=== PATIENT | male | born 1960 | race African-American/Black ===

== ENCOUNTER 2024-02-13 11:20 | Emergency (ER) | payer OTHER ==
--- NOTE | 2024-02-13 11:46 | ER ---
Nurse's Notes [facility] Name: Gerson Gonzalez Age: 63 yrs Sex: Male : 1960 Arrival Date: 02/13/2024 Time: 11:20 Bed 8 Private MD: Diagnosis: Subcutaneous cyst Presentation: 02/12 11:38 Chief complaint: Patient states: "For the past 2-3 weeks, my left foot started hurting. mb9 It gets worse when walking. I didn't injure it.". Coronavirus screen: Vaccine status: Patient reports receiving the 2nd dose of the covid vaccine. Ebola Screen: No symptoms or risks identified at this time. Initial Sepsis Screen: Does the patient meet any 2 criteria? No. Patient's initial sepsis screen is negative. Does the patient have a suspected source of infection? No. Patient's initial sepsis screen is negative. Risk Assessment: Do you want to hurt yourself or someone else? Patient reports no desire to harm self or others. Onset of symptoms was February 13, 2024. 11:38 Method Of Arrival: Ambulatory 9 11:38 Acuity: ISMA 5 mb9 Triage Assessment: 11:39 General: Appears in no apparent distress. Behavior is calm, cooperative. Pain: mb9 Complains of pain in left foot Pain does not radiate. Pain currently is 2 out of 10 on a pain scale. Quality of pain is described as throbbing, Pain began gradually. EENT: No signs and/or symptoms were reported regarding the EENT system. Neuro: Starks Agitation-Sedation Scale (RASS): 0 - Alert and Calm Level of Consciousness is awake, alert, obeys commands, Oriented to person, place, time, situation, Appropriate for age. Cardiovascular: Patient's skin is warm and dry. Respiratory: Airway is patent Respiratory effort is even, unlabored, Respiratory pattern is regular, symmetrical. GI: No signs and/or symptoms were reported involving the gastrointestinal system. : No signs and/or symptoms were reported regarding the genitourinary system. Derm: Skin is pink, warm \\T\\ dry. Musculoskeletal: Range of motion: intact in all extremities. Historical: - Allergies: 11:40 No Known Allergies; mb9 - Home Meds: 11:40 None [Active]; mb9 - PMHx: 11:40 Hypertensive disorder; mb9 - PSHx: 11:40 None; mb9 - Immunization history:: Adult Immunizations up to date. - Infectious Disease History:: Denies. - Social history:: Smoking status: Patient denies any tobacco usage or history of. Screenin:40 [facility] ED Fall Risk Assessment (Adult) History of falling in the last 3 months, mb9 including since admission No falls in past 3 months (0 pts) Confusion or Disorientation No (0 pts) Intoxicated or Sedated No (0 pts) Impaired Gait No (0 pts) Mobility Assist Device Used No (0 pt) Altered Elimination No (0 pt) Score/Fall Risk Level 0 - 2 = Low Risk Oriented to surroundings, Maintained a safe environment, Educated pt \\T\\ family on fall prevention, incl call for assistance when getting out of bed, Assessed \\T\\ reinforced patient's understanding of fall precautions. Abuse screen: Denies threats or abuse. Nutritional screening: No deficits noted. Tuberculosis screening: No symptoms or risk factors identified. Assessment: 11:41 Reassessment: see triage assessment. mb9 Vital Signs: 11:38 Pulse 65; Resp 18; Temp 98.1; Pulse Ox 99% on R/A; Weight 75.75 kg; Height 5 ft. 6 in. mb9 ; Pain 2/10; 11:41 BP 151 / 105; mb9 11:38 Body Mass Index 26.95 (75.75 kg, 167.64 cm) mb9 11:38 Pain Scale: Adult mb9 ED Course: 11:22 Patient arrived in ED. mr 11:25 James Adames MD is Attending Physician. sp3 11:34 Charlene Caceres RN is Primary Nurse. mb9 11:34 Arm band placed on. mb9 11:39 Triage completed. mb9 11:40 Placed in gown. Bed in low position. Call light in reach. Side rails up X 1. Provided mb9 Education on: press call light if needing anything. Client placed on continuous cardiac and pulse oximetry monitoring. NIBP monitoring applied. Door closed. Noise minimized. Warm blanket given. 11:41 No provider procedures requiring assistance completed. mb9 11:43 Patient did not have IV access during this emergency room visit. mb9 Administered Medications: No medications were administered Medication: 11:40 VIS not applicable for this client. mb9 Outcome: 11:45 Discharge ordered by . sp3 11:45 Discharged to home ambulatory, mb9 11:45 Condition: stable 11:45 Discharge instructions given to patient, Instructed on discharge instructions, follow up and referral plans. Demonstrated understanding of instructions, follow-up care, 11:55 Patient left the ED. mb9 Signatures: Charlene Pedroza, Reg Reg James Adames MD MD sp3 Charlene Caceres RN RN mb9 Corrections: (The following items were deleted from the chart) 11:41 11:38 Acuity: ISMA 4 mb9 mb9
--- NOTE | 2024-02-13 11:46 | EDPHYS ---
Physician Documentation [facility] Name: Gerson Gonzalez Age: 63 yrs Sex: Male : 1960 Arrival Date: 02/13/2024 Time: 11:20 Bed 8 Private MD: ED Physician James Adames HPI: 02/12 11:43 This 63 yrs old Black Male presents to ER via Ambulatory with complaints of Foot sp3 problem. 11:43 63-year-old male with left foot pain and swelling for 1 month. Patient states he has sp3 had an x-ray which has been normal. He would like us to "drain it". He denies any other symptoms including direct trauma, significant pain, fever, redness, or any other signs or symptoms on ROS at this time. No history of gout reported.. Historical: - Allergies: 11:40 No Known Allergies; mb9 - Home Meds: 11:40 None [Active]; mb9 - PMHx: 11:40 Hypertensive disorder; mb9 - PSHx: 11:40 None; mb9 - Immunization history:: Adult Immunizations up to date. - Infectious Disease History:: Denies. - Social history:: Smoking status: Patient denies any tobacco usage or history of. ROS: 11:44 Constitutional: Negative for fever, chills, and weight loss, Eyes: Negative for injury, sp3 pain, redness, and discharge, ENT: Negative for injury, pain, and discharge, Neck: Negative for injury, pain, and swelling, Cardiovascular: Negative for chest pain, palpitations, and edema, Respiratory: Negative for shortness of breath, cough, wheezing, and pleuritic chest pain, Abdomen/GI: Negative for abdominal pain, nausea, vomiting, diarrhea, and constipation, Back: Negative for injury and pain, Skin: Negative for injury, rash, and discoloration, Neuro: Negative for headache, weakness, numbness, tingling, and seizure, Psych: Negative for depression, anxiety, suicide ideation, homicidal ideation, and hallucinations, Allergy/Immunology: Negative for hives, rash, and allergies, Endocrine: Negative for neck swelling, polydipsia, polyuria, polyphagia, and marked weight changes, 11:44 All other systems are negative, Exam: 11:44 Constitutional: This is a well developed, well nourished patient who is awake, alert, sp3 and in no acute distress. Head/Face: Normocephalic, atraumatic. Neck: Trachea midline, no thyromegaly or masses palpated, and no cervical lymphadenopathy. Supple, full range of motion without nuchal rigidity, or vertebral point tenderness. No Meningismus. Chest/axilla: Normal chest wall appearance and motion. Nontender with no deformity. No lesions are appreciated. Cardiovascular: Regular rate and rhythm with a normal S1 and S2. No gallops, murmurs, or rubs. Normal PMI, no JVD. No pulse deficits. Respiratory: Lungs have equal breath sounds bilaterally, clear to auscultation and percussion. No rales, rhonchi or wheezes noted. No increased work of breathing, no retractions or nasal flaring. Abdomen/GI: Soft, non-tender, with normal bowel sounds. No distension or tympany. No guarding or rebound. No evidence of tenderness throughout. Skin: Warm, dry with normal turgor. Normal color with no rashes, no lesions, and no evidence of cellulitis. Neuro: Awake and alert, GCS 15, oriented to person, place, time, and situation. Cranial nerves II-XII grossly intact. Motor strength 5/5 in all extremities. Sensory grossly intact. Cerebellar exam normal. Normal gait. 11:44 Musculoskeletal/extremity: Small 1 cm cyst noted on the lateral foot on the left side. This exam is not consistent with abscess, infection or any other concerning findings. Cyst appears to be chronic in nature and the skin overlying is normal.. Vital Signs: 11:38 Pulse 65; Resp 18; Temp 98.1; Pulse Ox 99% on R/A; Weight 75.75 kg; Height 5 ft. 6 in. mb9 ; Pain 2/10; 11:41 BP 151 / 105; mb9 11:38 Body Mass Index 26.95 (75.75 kg, 167.64 cm) mb9 11:38 Pain Scale: Adult mb9 MDM: 11:30 Patient medically screened. sp3 11:45 Data reviewed: vital signs, nurses notes. ED course: Cyst on left foot likely chronic sp3 in nature. Patient will be referred to podiatry for further investigation and possible drainage. No ED intervention indicated at this time.. 11:46 ED course: Patient will follow-up with the [facility] where they have podiatry sp3 according to him.. Administered Medications: No medications were administered Disposition Summary: 02/13/24 11:45 Discharge Ordered Notes: Location: Home sp3 Condition: Stable sp3 Diagnosis - Subcutaneous cyst sp3 Followup: sp3 - With: Private Physician - When: Upon discharge from the Emergency Department - Reason: Continuance of care Discharge Instructions: - Discharge Summary Sheet sp3 - Foot Pain sp3 Forms: - Medication Reconciliation Form sp3 - Antibiotic Education sp3 - Prescription Opioid Use sp3 - Patient Portal Instructions sp3 - Leadership Thank You Letter sp3 Signatures: James Adames MD MD sp3 Charlene Caceres RN RN mb9
[2024-02-14 14:40] VITALS: BP 151/105; TEMP 98.1; O2SAT 99
== END 2024-02-13 11:55 | disposition home or self-care (01) ==
LOC: ER 11:20
DX: L72.3 Sebaceous cyst (principal)
CPT/HCPCS: 99283